=== PATIENT | male | born 1970 | race Two or more races ===

== ENCOUNTER 2024-05-02 19:31 | Emergency (ER) | payer MEDICAID, OTHER ==
[~2024-05-02] VITALS: Ht 185.4 cm; Wt 105.8 kg
[2024-05-02 20:07] VITALS: BP 149/80; PULSE 74; RESP 18; TEMP 98.7; O2SAT 97
[2024-05-02] MEDS ORDERED: LIDO3CRE16 EX (20:19)
[2024-05-02] MEDS ORDERED: VALA1TAB PO (20:19)
--- NOTE | 2024-05-02 20:20 | ED.PDOC ---
History of Present Illness(SKN HPI Comments This is a 53-year-old male presents to the ED chief complaint of wound times 2-3 weeks upper thigh. 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 He has been putting lidocaine cream on it which has been helping the pain. He notes he felt numbness and burning prior to rash starting. Denies fever, chills, nausea or vomiting Chief Complaint: Wound Check Time Seen by MD: 19:35 History of Present Illness: Nurses Notes, Medications, Allergies Allergies: Coded Allergies: No Known Drug Allergy (Verified Allergy, Unknown, 05/02/24) Home Meds Active Scripts Lidocaine Hcl (Lidocaine) 3 % Cre, 3 % EX TID PRN for 5 Days, #1 CRE Prov:ROBEL FLOR [facility] 05/02/24 Valacyclovir Hcl (Valtrex) 1 Gm Tab, 1 TAB PO TID for 7 Days, #21 TAB Prov:ROBEL FLOR [facility] 05/02/24 Information Source: Patient Mode of Arrival: Ambulatory Past Medical History PAST MEDICAL HISTORY: Denies Surgical History: Denies all surgeries Family History Family History: Reviewed,noncontributory to illness Social History Smoker: Non-Smoker Alcohol: Denies ETOH Use Drugs: Denies Drug Use Constitutional: denies: chills, diaphoresis, fatigue, fever, malaise, sweats, weakness, others EENTM: denies: blurred vision, double vision, ear bleeding, ear discharge, ear drainage, ear pain, ear ringing, eye pain, eye redness, hearing loss, mouth pain, mouth swelling, nasal discharge, nose bleeding, nose congestion, nose pain, photophobia, tearing, throat pain, throat swelling, voice changes, others Respiratory: denies: cough, hemoptysis, orthopnea, SOB at rest, shortness of breath, SOB with excertion, stridor, wheezing, others Cardiovascular: denies: chest pain, dizzy spells, diaphoresis, Dyspnea on exertion, edema, irregular heart beat, left arm pain, lightheadedness, palpitations, PND, syncope, others Gastrointestinal: denies: abdomen distended, abdominal pain, blood streaked bowels, constipated, diarrhea, dysphagia, difficulty swallowing, hematemesis, melena, nausea, poor appetite, poor fluid intake, rectal bleeding, rectal pain, vomiting, others Genitourinary: denies: burning, dysuria, flank pain, frequency, hematuria, incontinence, penile discharge, penile sore, pain, testicle pain, testicle swelling, urgency, others Neurological: denies: dizziness, fainting, headache, left sided numbness, left sided weakness, numbness, paresthesia, pre-existing deficit, right sided numbness, right sided weakness, seizure, speech problems, tingling, tremors, weakness, others Musculoskeletal: denies: back pain, gout, joint pain, joint swelling, muscle pain, muscle stiffness, neck pain, others Integumetry: reports: rash (Right posterior thigh); denies: bruises, change in color, change in hair/nails, dryness, laceration, lesions, lumps, others Allergic/Immunocompromised: denies: Difficulty Healing, Frequent Infections, Hives, Itching, others Hematologic/Lymphatic: denies: anemia, blood clots, easy bleeding, easy bruising, swollen glands, others Endocrine: denies: excessive hunger, excessive sweating, excessive thirst, excessive urination, flushing, intolerance to cold, intolerance to heat, unex plained weight gain, unexplained weight loss, others Psychiatric: denies: anxiety, bipolar disorder, depression, hopeless, panic disorder, schizophrenia, sleepless, suicidal, others Physical Exam General Appearance: No Apparent Distress, Normal HEENT: Pharynx Normal Neck: Full Range of Motion, Non-Tender Respiratory: Lungs Clear, No Respiratory Distress, Normal Breath Sounds Cardiovascular: No Edema, No JVD, No Murmur, No Gallop, Normal Peripheral Pulses, Regular Rate/Rhythm Breast Exam: Deferred Gastrointestinal: No Organomegaly, Non Tender, No Pulsatile Mass, Normal Bowel Sounds, Soft Genitalia: Deferred Pelvic: Deferred Rectal: Deferred Extremities: Normal capillary refill, Normal inspection, Normal range of motion, Non-tender, No pedal edema Musculoskeletal : Apperance: Normal Neurologic: Alert, dock hand II-XII nml as Tested, No Motor Deficits, Normal Affect, Normal Mood, No Sensory Deficits Cerebellar Function: Normal Reflexes: Normal Skin: Dry, Normal Color, Rash (Lesion right proximal thigh without drainage noted surrounding erythema no noted excoriations or streaking), Warm Lymphatic: No Adenopathy Was a procedure done? Was a procedure done?: No Differential Diagnosis (INTG) Differential Diagnosis: Cellulitis X-Ray, Labs, Meds, VS Vital Signs Date Time Temp Pulse Resp B/P (MAP) Pulse Ox O2 Delivery O2 Flow Rate FiO2 05/02/24 20:07 74 18 97 Room Air* 0 21 05/02/24 20:07 98.7 70 18 149/80 (103) 74 98.7 05/02/24 19:49 99.0 74 18 152/86 (108) 97 Current Medications Medications (Trade) Dose Ordered Sig/Maris Route Start Time Stop Time Status Last Admin Ceftriaxone Sodium (Rocephin) 1,000 mg ONCE ONCE IM 05/02/24 20:15 05/02/24 20:16 DC 05/02/24 20:22 X-Ray, Labs, Meds, VS Comment Likely herpes zoster. We will cover for possible skin infection patient given Rocephin 1 g IM. Ribs Valtrex and Keflex. Advised to follow up with his PCP in 2-3 days for rash re-evaluation. Return Precautions given. Agrees with discharge care plan. Time of 1ST Reevaluation: 20:20 Reevaluation 1ST: Improved Patient Education/Counseling: Diagnosis, Treatment, Prognosis, Need For Follow Up Family Education/Counseling: Diagnosis, Treatment, Prognosis, Need For Follow Up Departure 1 Departure Time of Disposition: 20:20 Impression: Primary Impression: Herpes zoster Qualified Codes: B02.9 - Zoster without complications Disposition: 01 HOME / SELF CARE / HOMELESS Condition: Stable e-Prescriptions Cephalexin Monohydrate (Cephalexin) 500 Mg Cap 500 MG PO Q6HR for 5 Days, #20 MG Prov: ROBEL FLOR 05/02/24 Lidocaine Hcl (Lidocaine) 3 % Cre 3 % EX TID PRN for 5 Days, #1 CRE Prov: ROBEL FLOR 05/02/24 Valacyclovir Hcl (Valtrex) 1 Gm Tab 1 TAB PO TID for 7 Days, #21 TAB Prov: ROBEL FLOR 05/02/24 Discharged With: Spouse Critical Care Note Critical Care Time?: No Stability Stability form required: ROBEL Szymanski May 02, 2024 20:20
[2024-05-02] MEDS: cefTRIAXone SOD 1,000 MG VL IM ONE (20:22)
[2024-05-02] MEDS ORDERED: CEPH500C PO (21:51)
== END 2024-05-02 21:00 | disposition home or self-care (01) ==
LOC: ER 19:31
DX: B02.9 Zoster without complications (principal); Z79.624 Long term (current) use of inhibitors of nucleotide synthesis
CPT/HCPCS: 96372; 99283; J0696